=== PATIENT | female | born 1980 | race Caucasian/White ===

== ENCOUNTER 2017-06-22 21:11 | Emergency (ER) | payer MEDICAID | END 2017-06-22 22:45 | disposition home or self-care (01) | LOC: D.ER 21:11 | DX: K08.89 Other specified disorders of teeth and supporting structures (principal); K02.9 Dental caries, unspecified; K05.10 Chronic gingivitis, plaque induced; F17.200 Nicotine dependence, unspecified, uncomplicated ==

== ENCOUNTER 2019-01-22 19:37 | Emergency (ER) | payer SELFPAY ==
[~2019-01-22] VITALS: Ht 157.5 cm; Wt 61.4 kg
[2019-01-22 19:41] VITALS: Ht 157.5 cm; Wt 61.4 kg
[2019-01-22 20:35] LABS: APPEARANCE CLEAR (CLEAR); BILIRUBIN NEGATIVE (NEGATIVE); COLOR YELLOW (YELLOW); GLUCOSE NEGATIVE (NEGATIVE); KETONE NEGATIVE (NEGATIVE); NITRITE NEGATIVE (NEGATIVE); PROTEIN NEGATIVE (NEGATIVE); UROBILINOGEN NORMAL (NORMAL)
[2019-01-22 20:42] LABS: BASOPHILS 0.1 % (0-2); EOSINOPHILS 1.2 % (0-7); HEMATOCRIT 40.2 % (36.0-48.0); HEMOGLOBIN 13.3 g/dL (12-16); IMMATURE GRANULOCYTES 0.3 % (0-5); LYMPHOCYTES 16.2 % (15-50); MCH 29.8 pg (26.0-34.0); MCHC 33.1 g/dL (31.0-37.0); MCV 89.9 fL (80.0-100.0); MEAN PLATELET VOLUME 11.7 fL (7.4-10.4); MONOCYTES 6.3 % (2-11); NEUTROPHILS 75.9 % (40-80); RBC 4.47 10x6/uL (4.00-5.40); WBC 16.1 10x3/uL (4.8-10.8)
[2019-01-22 20:57] LABS: PLATELET COUNT 356 10x3/uL (130-400)
[2019-01-22 21:01] LABS: ALBUMIN 3.6 g/dL (3.4-5.0); ALKALINE PHOSPHATASE 79 U/L (46-116); ALT (SGPT) 27 U/L (10-68); BILIRUBIN - TOTAL 0.19 mg/dL (0.2-1.3); CALC OSMOLALITY 277 mosm/kg (275-300); CALCIUM 9.2 mg/dL (8.5-10.1); CARBON DIOXIDE 30.7 mmol/L (21.0-32.0); CHLORIDE - SERUM 102 mmol/L (98-107); CREATININE - SERUM 0.7 mg/dL (0.6-1.3); GLUCOSE 97 mg/dL (74-106); POTASSIUM - SERUM 3.2 mmol/L (3.5-5.1); SODIUM 139 mmol/L (136-145); UREA NITROGEN 13 mg/dL (7-18); eGFR NON AFRICAN AMERICAN > 90 mL/min (90-120)
[2019-01-22 21:05] LABS: APTT 29.7 SECONDS (22.8-39.4); INR 1.02 (0.85-1.17); PROTIME 12.9 SECONDS (11.6-15.0)
[2019-01-22 21:10] LABS: AMYLASE - SERUM 63 U/L (25-115); CKMB 1.6 U/L (0.0-3.6); CREATINE KINASE 78 UL (21-215); LIPASE 226 U/L (73-393); MAGNESIUM - SERUM 1.8 mg/dL (1.8-2.4); TROPONIN-I < 0.017 ng/mL (0.000-0.060)
[2019-01-22 22:07] LABS: HCG URINE NEGATIVE (NEGATIVE)
[2019-01-22 22:26] VITALS: BP 141/93
== END 2019-01-22 22:33 | disposition left against medical advice (07) ==
LOC: D.ER 19:37
PROVIDERS: Emergency Medicine
DX: R10.9 Unspecified abdominal pain (principal)